=== PATIENT | male | born 1980 | race African-American/Black ===

== ENCOUNTER 2017-04-15 05:54 | Emergency (ER) | payer SELFPAY ==
[~2017-04-15] VITALS: Ht 175.3 cm; Wt 79.0 kg
[2017-04-15 05:56] VITALS: BP 145/91; PULSE 89; RESP 16; TEMP 99.5; O2SAT 99
[2017-04-15] MEDS ORDERED: LOVA20TA PO (06:04)
[2017-04-15] MEDS ORDERED: ZOLO50TA PO (06:04)
[2017-04-15] MEDS ORDERED: DICL50TA3 PO (06:07)
[2017-04-15] MEDS ORDERED: AMOX500C PO (06:07)
[2017-04-15] MEDS ORDERED: ACETAMINOPHEN/HYDROcodone 325 MG/5 MG TAB PO ONE (06:15)
[2017-04-15] MEDS ORDERED: AMOXICILLIN (TRIHYDRATE) 500 MG CAP PO ONE (06:15)
--- NOTE | 2017-04-15 06:15 | PD ---
HPI Chief Complaint: Oral / Dental Pain or Problem Time Seen by Provider: 06:10 Travel History International Travel<30 days: No Contact w/Intl Traveler<30days: No Traveled to known affect area: No History of Present Illness HPI 36-year-old black male presents to emergency department with complaint of right lower mandibular pain for the past 3 days. He states that he has had a decayed tooth and feels that he is now developed an abscess. He has pain that goes up under his wisdom tooth. He denies any fever chills. No ear pain or sore throat. Pain is moderate. [facility] Past Medical History Narrative Medical hYPERCHOLESTEROLEMIA, DEPRESSION Tetanus Vaccination: < 5 Years Past Surgical History Surgical History: No Previous Surgery Social History Alcohol Use: No Tobacco Use: No Allergies-Medications (Allergen,Severity, Reaction): Coded Allergies: No Known Allergies (Unverified , 04/15/17) Reported Meds & Prescriptions Reported Meds & Active Scripts Active Diclofenac Sodium DR (Diclofenac Sodium) 50 Mg Tabdr 50 Mg PO TID Amoxicillin 500 Mg Cap 500 Mg PO TID Reported Zoloft (Sertraline HCl) 50 Mg Tab 50 Mg PO DAILY Lovastatin 20 Mg Tab 20 Mg PO DAILY Review of Systems Except as stated in HPI: all other systems reviewed are Neg General / Constitutional: No: Fever, Chills Eyes: No: Diploplia, Blurred Vision HENT: Positive: Dental Difficulties, No: Gingival Bleeding, Ear Discharge, Earache Cardiovascular: No: Chest Pain or Discomfort, Palpitations Physical Exam Narrative GENERAL: Well-developed, well-nourished in no acute distress. Nontoxic appearing. HEAD: Normocephalic, atraumatic. EYES: Pupils equal round and reactive. Extraocular motions intact. No scleral icterus. No injection or drainage. ENT: TMs clear without erythema. The external auditory canals clear. Nose: clear . Posterior pharynx is pink and moist. No tonsillar edema or exudate. Uvula midline. Airway patent. Patient has a large dental carry in tooth #31. He has gingival edema and erythema. Tender to percussion no facial swelling. NECK: Trachea midline.Supple, nontender, moves head freely. No central bony tenderness or spasm. CARDIOVASCULAR: Regular rate and rhythm without murmurs, gallops, or rubs. RESPIRATORY: Clear to auscultation. Breath sounds equal bilaterally. No wheezes , rales, or rhonchi. GASTROINTESTINAL: Abdomen soft, non-tender, nondistended. No hepato-splenomegaly , or palpable masses. No guarding. EXTREMITIES: No clubbing, cyanosis, or edema. No joint tenderness, effusion, or edema noted. BACK: Nontender without deformity or crepitance. No flank tenderness. Data Data Last Documented VS Vital Signs Date Time Temp Pulse Resp B/P Pulse Ox O2 Delivery O2 Flow Rate FiO2 04/15/17 05:56 99.5 89 16 145/91 99 Room Air Orders Amoxicillin (Trimox) (04/15/17 06:15) Acetamin-Hydrocod 325-5 Mg ([place] 5-325 (04/15/17 06:15) MDM Medical Decision Making Medical Screen Exam Complete: Yes Emergency Medical Condition: Yes Medical Record Reviewed: Yes Differential Diagnosis MDM: Moderate Differential diagnoses: Dental abscess, dental caries, osteitis, cellulitis Narrative Course Patient is given amoxicillin 1 g by mouth and Lortab 5 a grams by mouth. This is dental caries, dentalgia Diagnosis Primary Impression: Dental caries Additional Impression: Dentalgia Patient Instructions: Narcotic given in the ED Additional Instructions: Rest. [place]water gargles. [place] oil on cotton balls. Amoxicillin and diclofenac follow-up with a dentist as soon as possible. And return to the ER if any problems. Med/Other Pt SpecificInfo: Prescription(s) given Scripts Diclofenac Sodium DR 50 Mg Tabdr50 Mg PO TID #21 TAB Prov:Chaitanya Russell MD 04/15/17 Amoxicillin 500 Mg [id number] Mg PO TID #30 CAP Prov:Chaitanya Russell MD 04/15/17 Disposition: 01 DISCHARGE HOME Condition: Stable Gera Jones Apr 15, 2017 06:15
== END 2017-04-15 06:31 | disposition home or self-care (01) ==
LOC: NEPD 05:54
DX: K02.9 Dental caries, unspecified (principal); K08.89 Other specified disorders of teeth and supporting structures; E78.00 Pure hypercholesterolemia, unspecified
CPT/HCPCS: 99284

== ENCOUNTER 2017-04-19 03:15 | Emergency (ER) | payer SELFPAY ==
[~2017-04-19] VITALS: Ht 172.7 cm; Wt 96.0 kg
[~2017-04-19 03:15] MED LIST: AMOX500C PO; DICL50TA3 PO; LOVA20TA PO; ZOLO50TA PO
[2017-04-19 03:17] VITALS: BP 136/88; PULSE 80; RESP 16; TEMP 98.7; O2SAT 98
[2017-04-19] MEDS ORDERED: DICL50TA3 PO (04:13)
[2017-04-19] MEDS ORDERED: PERI0.126 SWISH-SPIT (04:13)
[2017-04-19] MEDS ORDERED: CLIN1CAP5 PO (04:13)
--- NOTE | 2017-04-19 04:13 | PD ---
HPI Chief Complaint: Oral / Dental Pain or Problem Time Seen by Provider: 04:08 Travel History International Travel<30 days: No Contact w/Intl Traveler<30days: No Traveled to known affect area: No History of Present Illness HPI Patient is a 36-year-old male presented to emergency department evaluation of right third molar pain. Patient states he was seen and evaluated in the emergency department on Tuesday, prescribed amoxicillin and diclofenac. He has been taking amoxicillin with no improvement in his symptoms. He states he has appointment with his dentist in one week but they will not see him until the abscess was cleared. Patient states he can't eat, and his tooth is sensitive to temperature. Patient denies any fevers, chills, facial swelling, headache. PFSH Past Medical History Medical History: Denies Significant Hx Diminished Hearing: No Tetanus Vaccination: Unknown Influenza Vaccination: No Past Surgical History Surgical History: No Previous Surgery Social History Alcohol Use: No Tobacco Use: No Substance Use: No Allergies-Medications (Allergen,Severity, Reaction): Coded Allergies: No Known Allergies (Unverified , 04/19/17) Reported Meds & Prescriptions Reported Meds & Active Scripts Active Diclofenac Sodium DR (Diclofenac Sodium) 50 Mg Tabdr 50 Mg PO TID Amoxicillin 500 Mg Cap 500 Mg PO TID Reported Zoloft (Sertraline HCl) 50 Mg Tab 50 Mg PO DAILY Lovastatin 20 Mg Tab 20 Mg PO DAILY Review of Systems Except as stated in HPI: all other systems reviewed are Neg HENT: Positive: Dental Difficulties Physical Exam Narrative GENERAL: Well-nourished, well-developed patient. SKIN: Focused skin assessment warm/dry. HEAD: Normocephalic. MOUTH: Mucous membranes moist, no lesions, tongue is normal. Gums surrounding the right lower third molar are edematous but do not appear erythematous, that third molar is trying to erupt. EYES: No scleral icterus. No injection or drainage. NECK: Supple, trachea midline. No JVD or lymphadenopathy. CARDIOVASCULAR: Regular rate and rhythm without murmurs, gallops, or rubs. RESPIRATORY: Breath sounds equal bilaterally. No accessory muscle use. GASTROINTESTINAL: Abdomen soft, non-tender, nondistended. MUSCULOSKELETAL: No cyanosis, or edema. BACK: Nontender without obvious deformity. No CVA tenderness. Data Data Last Documented VS Vital Signs Date Time Temp Pulse Resp B/P Pulse Ox O2 Delivery O2 Flow Rate FiO2 6/20/17 03:20 16 04/19/17 03:17 98.7 80 136/88 98 Room Air MDM Medical Decision Making Medical Screen Exam Complete: Yes Emergency Medical Condition: Yes Interpretation(s) Vital Signs Date Time Temp Pulse Resp B/P Pulse Ox O2 Delivery O2 Flow Rate FiO2 04/19/17 03:20 16 04/19/17 03:17 98.7 80 16 136/88 98 Room Air Differential Diagnosis Abscess versus dental caries versus tooth eruption versus toothache versus other Narrative Course Patient's 36-year-old male presenting for reevaluation of right lower molar pain. On physical examination appears in the right third lower molar is trying to erupt and there is not enough room to allow this to happen, the gums appear irritated but do not appear consistent with an abscess. Airway is patent. Antibiotics will be changed, patient does not have his prescription for diclofenac that he was given on Tuesday, he will be given a new prescription. He is advised to call his dentist to schedule appointment for further evaluation. He verbalizes understanding of these instructions. Patient is stable for discharge. Diagnosis Primary Impression: Dentalgia Additional Impression: Tooth eruption disturbance Referrals: Dentist 3 days Patient Instructions: General Instructions, Toothache (ED) Additional Instructions: Follow-up with a dentist in 2-3 days for further evaluation Take medications as directed Swish and spit out mouthwash as directed, do not swallow Return to emergency department for any new or worsening symptoms Med/Other Pt SpecificInfo: Prescription(s) given Scripts Diclofenac Sodium DR 50 Mg Tabdr50 Mg PO TID PRN (PAIN SCALE 1 TO 10) 10 Days Ref 0 Prov:Shirlene Yarbrough 04/19/17 Chlorhexidine Gluconate (Mouth) Liq (Peridex Liq)0.12% Soln15 Ml SWISH-SPIT BID 7 Days Ref 0 Prov:Shirlene Yarbrough 04/19/17 Clindamycin 150 Mg Nol394 Mg PO Q8HR 7 Days Ref 0 Prov:Shirlene Yarbrough 04/19/17 Disposition: 01 DISCHARGE HOME Condition: Stable Shirlene Yarbrough Apr 19, 2017 04:13
== END 2017-04-19 04:20 | disposition home or self-care (01) ==
LOC: NEPD 03:15
DX: K08.89 Other specified disorders of teeth and supporting structures (principal); K00.6 Disturbances in tooth eruption
CPT/HCPCS: 99284